=== PATIENT | male | born 1950 | race Caucasian/White ===

== ENCOUNTER 2021-01-31 05:00 | Day surgery (SDC) | payer MEDICARE ==
[2021-01-26 11:14] LABS: BASOPHILS 0.6 % (0-2); EOSINOPHILS 5.1 % (0-7); HEMATOCRIT 50.9 % (42.0-54.0); HEMOGLOBIN 17.3 g/dL (13.5-17.5); IMMATURE GRANULOCYTES 0.6 % (0-5); LYMPHOCYTE ABS# 1.82 10x3/uL (1.32-3.57); LYMPHOCYTES 26.6 % (15-50); MCH 31.7 pg (26.0-34.0); MCV 93.4 fL (80.0-100.0); MEAN PLATELET VOLUME 9.7 fL (7.4-10.4); MONOCYTES 9.7 % (2-11); NEUTROPHIL ABS# 3.92 10x3/uL (1.78-5.38); NEUTROPHILS 57.4 % (40-80); PLATELET COUNT 199 10x3/uL (130-400); RBC 5.45 10x6/uL (4.20-6.10); RDW 12.6 % (11.5-14.5); WBC 6.8 10x3/uL (4.8-10.8)
[2021-01-26 11:25] LABS: CALC OSMOLALITY 277 mosm/kg (275-300); CALCIUM 8.8 mg/dL (8.5-10.1); CARBON DIOXIDE 26.2 mmol/L (21.0-32.0); CHLORIDE - SERUM 104 mmol/L (98-107); CREATININE - SERUM 0.9 mg/dL (0.6-1.3); GLUCOSE 92 mg/dL (74-106); POTASSIUM - SERUM 4.3 mmol/L (3.5-5.1); SODIUM 138 mmol/L (136-145); UREA NITROGEN 17 mg/dL (7-18); eGFR NON AFRICAN AMERICAN 88 mL/min (90-120)
[~2021-01-31] VITALS: Ht 177.8 cm; Wt 83.9 kg
[~2021-01-31 05:00] MED LIST: ADVIL PM PO; COLACE100 MG PO; GABAPENTIN300 MG PO; GLYXAMBI 25 MG1 EACH PO; LISINOPRIL10 MG PO; NAPROXEN250 MG PO; PRAVASTATIN SOD10 MG PO; VIAGRA25 MG PO; VITAMIN B COMPLEX PO
[2021-01-31 06:19] VITALS: BP 113/72; Ht 177.8 cm; Wt 83.9 kg
[2021-01-31] MEDS ORDERED: HYDROCODON-ACE1 EA10 PO (11:03)
[2021-01-31] MEDS ORDERED: MEDROL DOSE PACK4 MG PO (11:04)
--- NOTE | 2021-01-31 15:25 | NUR ---
IV D/C'D WITH CANNULA INTACT, PRESSURE HELD AND DRSG PLACED. DISCHARGE INSTRUCTIONS GIVEN AND PT VERBALIZED AN UNDERSTANDING. DR ORTA AT BEDSIDE
--- NOTE | 2021-02-07 13:05 | OP ---
PATIENT NAME: JOSE L ZAPATA MEDICAL RECORD: [id number] :48 LOCATION:D.OPS ADMISSION DATE: SURGEON: SAYRA ALFORD MD DATE OF OPERATION: 01/31/2021 DATE OF SERVICE: 01/31/2021 SURGEON: Sayra Alford MD PREOPERATIVE DIAGNOSIS: Lumbar spinal stenosis with foraminal stenosis at L4-L5, right greater than left. POSTOPERATIVE DIAGNOSIS: Lumbar spinal stenosis with foraminal stenosis at L4-L5, right greater than left. PROCEDURE: Lumbar laminotomy, medial facetectomy and foraminotomy L4-L5 on the right with left L4-L5 sublaminar decompression and left L4-L5 foraminotomy with METRx retractor. DESCRIPTION OF PROCEDURE: After induction of general endotracheal anesthesia, the patient was rolled prone on a Missael frame. The lumbar spine was prepped and draped in the usual sterile fashion. Fluoroscopic x-ray and spinal needle localized the L4-L5 interspace on the right side. After infiltration with 100,000 epinephrine, 1% lidocaine, a stab incision were created with a #11 blade. A series of dilators were used to advance the METRx retractor into the L4-L5 interspace on the right side. All of this was confirmed with fluoroscopic x-ray. A microscope and Midas Beau drill were used to perform a laminectomy, medial facetectomy, and foraminotomy at L4-L5 on the right. The spinous process of L4 was undermined with the Midas Beau drill. The tubular retractor was tilted to the opposite side to the left side. The hypertrophied ligamentum flavum was removed from the left side as well as the left foramen. After this, the right and left L4 and L5 nerve roots were decompressed as well. Meticulous hemostasis was maintained throughout the wound. The disk space was inspected on the right side and caused no significant nerve root compression. Therefore, no diskectomy was performed. The retractor was removed. The fascia was closed with 2-0 Vicryl suture. The subdermal layer was closed with a 3-0 Vicryl suture. Skin was closed with toni. A sterile dressing was applied to the wound. The patient was awakened in good condition and taken to recovery. All counts were reported as correct. ESTIMATED BLOOD LOSS: Minimal. TRANSINT:[id number] Voice Confirmation ID: [id number] DOCUMENT ID: [id number] SAYRA ALFORD MD at 1305 CC: [id number] DICTATION DATE: 02/06/21 1233 [employer] RECEPTIONIST: 02/06/21 1314 [facility] 01/31/21 [place] [id number] [place] [id number]
== END 2021-01-31 12:25 | disposition home or self-care (01) ==
LOC: D.OPS 05:00
PROVIDERS: Anesthesiology; ATTEND Neurological Surgery
DX: M48.061 Spinal stenosis, lumbar region without neurogenic claudication (principal); M54.16 Radiculopathy, lumbar region; G62.9 Polyneuropathy, unspecified